=== PATIENT | female | born 1955 | race Hispanic/Latino ===

== ENCOUNTER 2021-05-09 23:26 | Emergency (ER) | payer MEDICARE, OTHER ==
[~2021-05-09] VITALS: Ht 165.1 cm; Wt 59.4 kg
[2021-05-09] MEDS ORDERED: INSULIN REGULAR, HUMAN 100 UNIT/1 ML SQ STA (23:39)
[2021-05-09] MEDS ORDERED: INSULIN REGULAR, HUMAN 100 UNIT/1 ML IV STA (23:49)
== END 2021-05-10 01:11 | disposition home or self-care (01) ==
LOC: ER 23:30
DX: E11.65 Type 2 diabetes mellitus with hyperglycemia (principal); I10 Essential (primary) hypertension
CPT/HCPCS: 36415; 82948; 99283; J1817

== ENCOUNTER 2022-01-09 13:27 | Emergency (ER) | payer MEDICARE, OTHER ==
[~2022-01-09] VITALS: Ht 165.1 cm; Wt 59.4 kg
[2022-01-09] MEDS ORDERED: FAMOTIDINE 20 MG/2 ML VIAL IV STA (13:55)
[2022-01-09] MEDS ORDERED: ONDANSETRON HCL INJ 2MG/ML 2ML 2 MG/ML VIAL IV STA (13:55)
[2022-01-09 14:30] LABS: BASOPHILS # (AUTO) 0.1 (0.0-0.1); BASOPHILS % 0.8 % (0.0-1.0); EOSINOPHILS # (AUTO) 0.1 (0.0-0.4); EOSINOPHILS % 1.3 % (0.0-6.0); HEMATOCRIT 36.4 % (34.2-44.1); HEMOGLOBIN 12.9 g/dL (12.0-16.0); LYMPHOCYTES # (AUTO) 2.7 (1.0-3.2); LYMPHOCYTES % 25.9 % (18.0-39.1); MEAN CORPUSCULAR HEMOGLOBIN 31.5 pg (28-32); MEAN CORPUSCULAR HGB CONC 35.4 g/dL (31-35); MEAN CORPUSCULAR VOLUME 88.8 fL (81-99); MONOCYTES # (AUTO) 0.7 (0.2-0.8); MONOCYTES % 6.5 % (4.4-11.3); NEUTROPHILS # (AUTO) 6.9 (2.1-6.9); NEUTROPHILS % 65.1 % (38.7-80.0); PLATELET COUNT 240 x10e3/uL (140-360); RED CELL DISTRIBUTION WIDTH 14.7 % (11.7-14.4)
[2022-01-09 14:39] LABS: CLARITY,URINE TURBID (CLEAR); COLOR,URINE AMBER (YELLOW); KETONES,URINE 1+ (NEGATIVE); LEUKOCYTE ESTERASE ,URINE TRACE (NEGATIVE); NITRITE,URINE NEGATIVE (NEGATIVE); PROTEIN,URINE DIPSTICK 1+ (NEGATIVE); URINE UROBILINOGEN 1 mg/dL (0.2 - 1)
[2022-01-09 14:46] LABS: ALBUMIN 3.9 g/dL (3.5-5.0); ALBUMIN/GLOBULIN RATIO 1.1 (0.8-2.0); ANION GAP 15.3 mmol/L (8-16); CALCIUM 9.3 mg/dL (8.4-10.2); CREATININE, SERUM 0.77 mg/dL (0.57-1.11); POTASSIUM 3.3 mmol/L (3.5-5.1)
[2022-01-09 14:48] LABS: WBC,URINE (MAN) 0-5 /HPF (0-5)
[2022-01-09 14:49] LABS: BACTERIA,URINE MANY /HPF; EPITHELIAL CELLS,URINE RARE /LPF
[2022-01-09 14:53] LABS: CREATINE KINASE MB 0.7 ng/mL (0-5.0)
[2022-01-09] MEDS ORDERED: DONNATAL/LIDOCAINE/MAALOX 30 ML SUSP PO SCH (15:00)
[2022-01-09] MEDS ORDERED: IOPAMIDOL 370 MG/ML 100 ML INFUS..BTL INJ ONE (16:21)
[2022-01-09 19:49] VITALS: BP 118/86
== END 2022-01-09 19:53 | disposition short-term general hospital (02) ==
LOC: ER 13:29
DX: K86.9 Disease of pancreas, unspecified (principal); E11.9 Type 2 diabetes mellitus without complications; R63.4 Abnormal weight loss; Z20.822 Contact with and (suspected) exposure to COVID-19
CPT/HCPCS: 0223U; 36415; 71045; 74177; 80053; 81001; 82550; 82553; 83690; 83880; 84484; 85025; 93005; 99284; J2405; Q9967

== ENCOUNTER 2022-03-02 16:39 | Emergency (ER) | payer MEDICARE ==
[~2022-03-02] VITALS: Ht 165.1 cm; Wt 59.4 kg
[2022-03-02] MEDS ORDERED: SODIUM CHLORIDE 0.9% 1000ML 1,000 ML IV SCH (17:00)
[2022-03-02 17:25] LABS: BASOPHILS % 0.1 % (0.0-1.0); EOSINOPHILS % 0.1 % (0.0-6.0); HEMOGLOBIN 10.5 g/dL (12.0-16.0); LYMPHOCYTES # (AUTO) 2.1 (1.0-3.2); LYMPHOCYTES % 13.8 % (18.0-39.1); MEAN CORPUSCULAR HEMOGLOBIN 30.9 pg (28-32); MEAN CORPUSCULAR HGB CONC 33.9 g/dL (31-35); MEAN CORPUSCULAR VOLUME 91.2 fL (81-99); MONOCYTES # (AUTO) 0.9 (0.2-0.8); MONOCYTES % 5.7 % (4.4-11.3); NEUTROPHILS # (AUTO) 12.1 (2.1-6.9); NEUTROPHILS % 79.8 % (38.7-80.0); PLATELET COUNT 272 x10e3/uL (140-360); RED CELL DISTRIBUTION WIDTH 13.6 % (11.7-14.4)
[2022-03-02 17:51] LABS: ALBUMIN 2.3 g/dL (3.5-5.0); ALBUMIN/GLOBULIN RATIO 0.8 (0.8-2.0); ANION GAP 12.9 mmol/L (8-16); CREATININE, SERUM 0.64 mg/dL (0.57-1.11)
[2022-03-02 17:58] LABS: CALCIUM 6.6 mg/dL (8.4-10.2); POTASSIUM 2.9 mmol/L (3.5-5.1)
[2022-03-02] MEDS ORDERED: POTASSIUM CHLORIDE 20 MEQ TAB CR PO STA (17:58)
[2022-03-02 18:15] VITALS: BP 117/68
[2022-03-02] MEDS ORDERED: POTASSIUM CHLORIDE 20 MEQ TAB CR PO ONE (18:16)
== END 2022-03-02 18:11 | disposition home or self-care (01) ==
LOC: ER 16:45
DX: E11.65 Type 2 diabetes mellitus with hyperglycemia (principal); Z85.07 Personal history of malignant neoplasm of pancreas
CPT/HCPCS: 36415; 80053; 82948; 85025; 99284; J7030

== ENCOUNTER 2023-09-04 19:08 | Emergency (ER) | payer MEDICARE ==
[~2023-09-04] VITALS: Ht 165.1 cm; Wt 59.4 kg
[2023-09-04 19:15] VITALS: TEMP 97.7
[2023-09-04 20:00] VITALS: PULSE 97; RESP 16
[2023-09-04] MEDS ORDERED: Morphine 4mg INJECTION 4 MG/ML INJ IM ONE (20:45)
[2023-09-04 21:33] VITALS: BP 104/69; PULSE 96; RESP 17; TEMP 97.8; O2SAT 99
== END 2023-09-04 21:10 | disposition home or self-care (01) ==
LOC: ER 19:15
DX: M84.411A Pathological fracture, right shoulder, initial encounter for fracture (principal); W22.09XA Striking against other stationary object, initial encounter; Y92.89 Other specified places as the place of occurrence of the external cause; E11.9 Type 2 diabetes mellitus without complications; J44.9 Chronic obstructive pulmonary disease, unspecified; I48.91 Unspecified atrial fibrillation; Z85.07 Personal history of malignant neoplasm of pancreas; Z86.718 Personal history of other venous thrombosis and embolism
CPT/HCPCS: 99283